=== PATIENT | male | born 1995 | race Hispanic/Latino ===

== ENCOUNTER 2016-12-19 16:19 | Observation (INO) | payer OTHER ==
[2016-12-19 16:37] VITALS: RESP 18; TEMP 97.5
[2016-12-19] MEDS ORDERED: Sodium Chloride 0.9% 500 ML IV STA (16:44)
[2016-12-19 17:06] LABS: BASO # 0.02 K/mm3 (0.0-2.0); BASO % 0.3 % (0.0-3.0); EOS % 0.4 % (1.5-5.0); GRAN % 68.4 % (50.0-68.0); HEMATOCRIT 43.8 % (42.0-52.0); LYMPH # 1.7 (1.2-3.4); LYMPH % 23.5 % (22.0-35.0); MEAN CELL VOLUME 88.8 fl (80.0-105.0); MEAN CORPUSCULAR HEMOGLOBIN 32.9 pg (25.0-35.0); MEAN PLATELET VOLUME 10.2 fl (7.0-11.0); MONO # 0.5 (0.1-0.6); MONO % 7.4 % (1.0-6.0); RED CELL DISTRIBUTION WIDTH 12.4 % (11.5-14.5); WHITE BLOOD COUNT 7.3 10^3/ul (4.5-11.0)
--- NOTE | 2016-12-19 17:09 | ED PDOC ---
Arrival/HPI - General Chief Complaint: Chest Pain Time Seen by Provider: 12/19/16 16:33 Historian: Patient - History of Present Illness Narrative History of Present Illness (Text): 12/19/16 17:06 21-year-old male presents today with chest pain and shortness of breath that started 30 minutes after smoking marijuana today. Patient states since last night he has been using large amounts of cocaine. Patient states about 30 minutes ago he smoked some marijuana and then suddenly developed dizziness chest pain shortness of breath and anxiety. Patient states symptoms seem to have improved he is now having some abdominal pain. Complaining of nausea no vomiting. Patient denies shortness of breath at present time. Denies any recent trauma or injury. Past Medical History - Provider Review Nursing Documentation Reviewed: Yes - Travel History Have you recently traveled outside [place] w/in the past 3 mons?: No - Infectious Disease Hx of Infectious Diseases: None - Tetanus Immunization Tetanus Immunization: Unknown - Psychiatric Hx Substance Use: Yes (cocaine) Family/Social History - Physician Review Nursing Documentation Reviewed: Yes Family/Social History: Unknown Family HX Smoking Status: Heavy Smoker > 10 Cigarettes Daily Hx Alcohol Use: Yes Frequency of alcohol use: Few days per week Hx Substance Use: Yes (cocaine) Allergies/Home Meds Allergies/Adverse Reactions: Allergies No Known Allergies Allergy (Verified 12/19/16 16:26) Home Medications: Home Meds Medication Instructions Recorded Confirmed No Known Home Med 12/19/16 12/19/16 Review of Systems - Review of Systems Constitutional: absent: Fatigue, Fevers Respiratory: SOB. absent: Cough Cardiovascular: Chest Pain Gastrointestinal: Abdominal Pain, Nausea. absent: Constipation, Diarrhea, Vomiting Genitourinary Male: absent: Dysuria, Frequency, Hematuria Musculoskeletal: absent: Arthralgias, Back Pain, Neck Pain Skin: absent: Rash, Pruritis Neurological: absent: Headache, Dizziness Psychiatric: absent: Anxiety, Depression Physical Exam Vital Signs Reviewed: Yes Vital Signs Temp Pulse Resp BP BP Pulse Ox 12/19/16 20:13 90 18 120/69 99 12/19/16 20:11 97 H 18 120/69 100 12/19/16 18:00 96 H 18 120/76 99 12/19/16 16:38 159/87 H 12/19/16 16:36 97.5 F L 91 H 18 159/87 H 100 Temperature: Afebrile Blood Pressure: Hypertensive Pulse: Regular Respiratory Rate: Normal Appearance: Positive for: Well-Appearing, Non-Toxic, Comfortable Pain Distress: None Mental Status: Positive for: Alert and Oriented X 3 - Systems Exam Head: Present: Atraumatic Mouth: Present: Moist Mucous Membranes Neck: Present: Normal Range of Motion Respiratory/Chest: Present: Clear to Auscultation, Good Air Exchange. No: Respiratory Distress, Accessory Muscle Use, Wheezes, Retracting, Rhonchi, Tachypneic Cardiovascular: Present: Irregular Rhythm. No: Murmurs Abdomen: No: Tenderness, Distention, Rebound, Guarding Back: Present: Normal Inspection Upper Extremity: Present: Normal ROM Lower Extremity: Present: Normal ROM. No: Edema Neurological: Present: GCS=15 Skin: Present: Warm, Dry, Normal Color. No: Rashes Psychiatric: Present: Alert, Oriented x 3 Medical Decision Making ED Course and Treatment: 12/19/16 17:10 pt with chest pain ; vitals stable. pt in no distress. cbc; wnl cmp; glucose 183 trop:wnl ekg; normal sinus rhythm with sinus arrhythmia at 76 bpm normal axis normal intervals no ST elevations cxr: wnl UA; wnl UDS: + cocaine, + marijuana. 12/19/16 18:47 pt reassessment; pt alert and oriented; no distress. denies cp or sob. states he is feeling much better. denies abdominal pain. will repeat troponin at 20:20 12/19/16 20:07 pt does not want to stay in the hospital any longer. advised patient of risk of Heart attack, stroke, , disability or worsening of symptoms. pt is alert and oriented x3; no distress. stable vitals. ambulating with steady gait. Clinically sober. pt states that he no longer has any complaints. denies chest pain, denies shortness of breath. no abdominal pain. no headache or dizziness. Patient has been advised to not leave the emergency room but has decided to go AGAINST MEDICAL ADVICE. The patient possesses capacity to make decisions and has voiced understanding to all my warnings of potential worsening of the condition for which medical care was sought. I have discussed all known and potential risks and consequences to the patient leaving AGAINST MEDICAL ADVICE. Patient is leaving against medical advise. AMA form signed. witness by KEN SCOTT. impression; chest pain RETURN IF YOU WISH TO CONTINUE YOUR CARE FOLLOW UP WITH THE PRIMARY CARE PHYSICIAN TOMORROW. FOLLOW UP WITH THE LAY OUT MACHINE OPERATOR WITHIN THE NEXT 2 DAYS RETURN IMMEDIATELY IF SYMPTOMS WORSEN,PERSIST OR IF NEW SYMPTOMS DEVELOP. - Lab Interpretations Lab Results: 12/19/16 16:28 12/19/16 16:28 Lab Results 12/19/16 16:28: Alcohol, Quantitative < 10 12/19/16 16:28: WBC 7.3, RBC 4.93, Hgb 16.2, Hct 43.8, MCV 88.8, MCH 32.9, MCHC 37.0, RDW 12.4, Plt Count 274, MPV 10.2, Gran % 68.4 H, Lymph % (Auto) 23.5, Hettinger % (Auto) 7.4 H, Eos % (Auto) 0.4 L, Baso % (Auto) 0.3, Gran # 5.00, Lymph # 1.7, Hettinger # 0.5, Eos # 0.0, Baso # 0.02 12/19/16 16:28: Sodium 138, Potassium 3.5 L, Chloride 97 L, Carbon Dioxide 26, Anion Gap 19, BUN 10, Creatinine 0.9, Est GFR ( Amer) > 60, Est GFR (Non- Af Amer) > 60, Random Glucose 183 H, Calcium 10.3, Total Bilirubin 1.0, AST 25, ALT 29, Alkaline Phosphatase 61, Lactate Dehydrogenase 467, Total Creatine Kinase 158, Troponin I < 0.01, Total Protein 8.0, Albumin 5.3 H, Globulin 2.8, Albumin/Globulin Ratio 1.9 H, Lipase 61 - RAD Interpretation Radiology Orders: 12/19/16 16:35 CHEST PORTABLE [RAD] Stat - Medication Orders Current Medication Orders: Discontinued Medications Sodium Chloride (Sodium Chloride 0.9%) 500 mls @ 999 mls/hr IV .Q31M STA Stop: 12/19/16 17:14 Last Admin: 12/19/16 17:05 Dose: 999 mls/hr eMAR Start Stop Document 12/19/16 17:05 [email or web address] (Rec: 12/19/16 17:05 [email or web address] [id number]) Intravenous Solution Start Date 12/19/16 Start Time 17:05 End Date 12/19/16 ED OBSERVATION Date of observation admission: 12/19/16 Time of observation admission: 16:35 - Observation admission statement Patient is being placed in observation because:: pt with chest pain after cocaine/drug use - Goals of Observation Goals of observation are:: improvement in symptoms. 2 sets of negative troponins - Progress Note Progress Note: 12/19/16 18:30 Pt in no distress. stable vitals. alert/oriented. speaking in full sentences. 12/19/16 20:00 PT SIGNED AMA; DENIES ANY COMPLAINTS. Disposition/Present on Arrival - Present on Arrival Any Indicators Present on Arrival: No History of DVT/PE: No History of Uncontrolled Diabetes: No Urinary Catheter: No History of Decub. Ulcer: No History Surgical Site Infection Following: None - Disposition Have Diagnosis and Disposition been Completed?: Yes Diagnosis: Chest pain, Cocaine abuse, Marijuana abuse Disposition: AGAINST MEDICAL ADVICE Disposition Time: 20:11 Patient Problems: Current Active Problems Problem Status Onset Chest pain Acute Cocaine abuse Acute Marijuana abuse Acute Condition: UNKNOWN
[2016-12-19 17:12] LABS: ALB/GLOB RATIO 1.9 (1.1-1.8); ALKALINE PHOSPHATASE 61 U/L (38-126); ALT/SGPT 29 U/L (7-56); AST/SGOT 25 U/L (17-59); BLOOD UREA NITROGEN 10 mg/dL (7-21); CALCIUM 10.3 mg/dL (8.4-10.5); CARBON DIOXIDE 26 mmol/L (21-33); CHLORIDE 97 mmol/L (98-107); GFR AFRICAN-AMERICAN > 60; GLUCOSE,RANDOM 183 mg/dL (70-110); LIPASE 61 U/L (23-300); POTASSIUM 3.5 mmol/L (3.6-5.0); SODIUM 138 mmol/L (132-148)
[2016-12-19 17:24] LABS: TROPONIN I < 0.01 ng/mL
--- NOTE | 2016-12-19 17:43 | RAD ---
HISTORY: chest pain COMPARISON: No prior. FINDINGS: LUNGS: No active pulmonary disease. PLEURA: No significant pleural effusion identified, no pneumothorax apparent. CARDIOVASCULAR: Normal. OSSEOUS STRUCTURES: No significant abnormalities. VISUALIZED UPPER ABDOMEN: Normal. OTHER FINDINGS: None. IMPRESSION: No active disease.
[2016-12-19 18:06] LABS: URINE BILIRUBIN NEGATIVE (NEGATIVE); URINE BLOOD NEGATIVE (NEGATIVE); URINE GLUCOSE (UA) NEGATIVE (NEGATIVE); URINE KETONE NEGATIVE (NEGATIVE); URINE LEUKOCYTE ESTERASE NEGATIVE Leu/uL (NEGATIVE); URINE PROTEIN NEGATIVE mg/dL (<30 mg/dL); URINE UROBILINOGEN 0.2 E.U./dL (<1 E.U./dL)
[2016-12-19 18:07] LABS: URINE APPEARANCE CLEAR (CLEAR); URINE COLOR YELLOW (YELLOW)
[2016-12-19 20:12] VITALS: BP 120/69
[2016-12-19 20:14] VITALS: PULSE 90; O2SAT 99
--- NOTE | 2016-12-19 22:59 | CARD ---
APPROVED REPORT EKG Measurement Heart [id number] <Conclusion> Normal sinus rhythm with sinus arrhythmia Normal ECG
== END 2016-12-19 20:14 | disposition left against medical advice (07) ==
LOC: ED 16:19 → EROBSV 17:47
PROVIDERS: ADMIT Emergency Medicine; ATTEND Emergency Medicine
DX: F14.10 Cocaine abuse, uncomplicated (principal); F12.10 Cannabis abuse, uncomplicated; R07.9 Chest pain, unspecified
CPT/HCPCS: 71010; 80053; 80320; 80324; 80345; 80346; 80349; 80353; 80358; 80361; 81003; 82550; 83615; 83690; 83992; 84484; 85025; 93005; 99284; G0378; J7040